=== PATIENT | female | born 1950 | race Caucasian/White ===

== ENCOUNTER → 2023-03-23 08:56 | Outpatient (REF) | payer MEDICARE, OTHER, SELFPAY | LOC: HWRAD 08:56 | PROVIDERS: ATTENDING PHYSICIAN Internal Medicine Hematology & Oncology; FAMILY PHYSICIAN Family Medicine | DX: C34.31 Malignant neoplasm of lower lobe, right bronchus or lung (principal); C34.11 Malignant neoplasm of upper lobe, right bronchus or lung; Z79.899 Other long term (current) drug therapy | CPT/HCPCS: 71260; 74177; Q9967 ==

== ENCOUNTER 2023-06-11 09:20 | Outpatient (RCR) | payer MEDICARE, OTHER, SELFPAY | END 2023-06-11 23:59 | disposition home or self-care (01) | LOC: PURB 09:20 | PROVIDERS: ATTENDING PHYSICIAN Internal Medicine Critical Care Medicine; FAMILY PHYSICIAN Family Medicine | DX: J44.9 Chronic obstructive pulmonary disease, unspecified (principal); Z85.118 Personal history of other malignant neoplasm of bronchus and lung | CPT/HCPCS: 94625; G0237 ==

== ENCOUNTER 2023-07-14 09:30 | Outpatient (RCR) | payer MEDICARE, OTHER, SELFPAY | END 2023-07-14 23:59 | disposition home or self-care (01) | LOC: PURB 09:30 | PROVIDERS: ATTENDING PHYSICIAN Internal Medicine Critical Care Medicine; FAMILY PHYSICIAN Family Medicine | DX: J44.9 Chronic obstructive pulmonary disease, unspecified (principal); C34.11 Malignant neoplasm of upper lobe, right bronchus or lung | CPT/HCPCS: 94625 ==

== ENCOUNTER 2023-07-15 08:28 | Outpatient (REF) | payer MEDICARE, OTHER, SELFPAY ==
[2023-07-15] VITALS (11 sets, daily range): BP systolic 83–142; BP diastolic 63–81
[2023-07-15 08:55] LABS: % Basophils 1.3 % (0-2); % Eosinophils 3.6 % (0-6); % Immature Granulocytes 0.2 % (0-0.5); % Lymphocytes 17.2 % (20.5-51.1); % Monocytes 9.3 % (1.7-9.3); % Neutrophils 68.4 % (42.2-75.2); Absolute Basophils 0.1 10^3/uL (0-0.2); Absolute Eosinophils 0.2 10^3/uL (0-0.7); Absolute Lymphocytes 0.8 10^3/uL (1.2-3.4); Absolute Monocytes 0.4 10^3/uL (0.1-0.6); Absolute Neutrophils 3.2 10^3/uL (1.4-6.5); Hematocrit 40.4 % (37.0-47.0); Hemoglobin 13.5 g/dL (12.0-16.0); Mean Corp Hgb Conc. 33.4 g/dL (33.0-37.0); Mean Corpuscular Volume 86.7 fL (81.0-99.0); Mean Platelet Volume 10.1 fL (7.4-10.4); Nucleated Red Blood Cells % 0 %; Platelet Count 176 10^3/uL (130-400); Red Blood Cell Count 4.66 10^6/uL (4.20-5.40); Red Cell Dist. Width 14.6 % (11.5-14.5); White Blood Cell Count 4.7 10^3/uL (4.8-10.8)
[2023-07-15 09:04] LABS: INR 1.06; PT 13.9 Sec (11.4-14.6)
== END 2023-07-15 15:20 | disposition home or self-care (01) ==
LOC: RADI 08:28
PROVIDERS: ATTENDING PHYSICIAN Internal Medicine Hematology & Oncology; FAMILY PHYSICIAN Family Medicine
DX: R91.1 Solitary pulmonary nodule (principal); C34.31 Malignant neoplasm of lower lobe, right bronchus or lung; C34.11 Malignant neoplasm of upper lobe, right bronchus or lung; Z79.899 Other long term (current) drug therapy; Z79.01 Long term (current) use of anticoagulants
CPT/HCPCS: 88305; 88312; 32408; 36415; 71045; 85025; 85610; 88333; 88334; 99152; C2613

== ENCOUNTER 2023-08-13 09:30 | Outpatient (RCR) | payer MEDICARE, OTHER, SELFPAY | END 2023-08-13 23:59 | disposition home or self-care (01) | LOC: PURB 09:30 | PROVIDERS: ATTENDING PHYSICIAN Internal Medicine Critical Care Medicine; FAMILY PHYSICIAN Family Medicine | DX: J44.9 Chronic obstructive pulmonary disease, unspecified (principal) | CPT/HCPCS: 94625 ==

== ENCOUNTER 2023-09-01 09:30 | Outpatient (RCR) | payer MEDICARE, OTHER, SELFPAY | END 2023-09-02 09:37 | disposition home or self-care (01) | LOC: PURB 09:30 | PROVIDERS: ATTENDING PHYSICIAN Internal Medicine Critical Care Medicine; FAMILY PHYSICIAN Family Medicine | DX: J44.9 Chronic obstructive pulmonary disease, unspecified (principal) | CPT/HCPCS: 94625 ==

== ENCOUNTER → 2023-09-28 08:44 | Outpatient (REF) | payer MEDICARE, OTHER, SELFPAY | LOC: RAD 08:44 | PROVIDERS: ATTENDING PHYSICIAN Internal Medicine Hematology & Oncology; FAMILY PHYSICIAN Family Medicine | DX: C34.31 Malignant neoplasm of lower lobe, right bronchus or lung (principal); C34.11 Malignant neoplasm of upper lobe, right bronchus or lung; Z79.899 Other long term (current) drug therapy; C34.12 Malignant neoplasm of upper lobe, left bronchus or lung | CPT/HCPCS: 71260; Q9967 ==

== ENCOUNTER 2023-10-31 12:22 | Emergency (ER) | payer MEDICARE, OTHER, SELFPAY ==
[2023-10-31 12:24] VITALS: BP 138/83
[2023-10-31 12:49] VITALS: BMI 20.6
--- NOTE | 2023-10-31 12:50 | ED.GENMED ---
History of Present Illness
General
Chief Complaint: Fall
Source: patient
Time Seen by Provider: 10/31/23 12:38
History of Present Illness
History of Present Illness:
73yoF with a history of COPD, prior history of lung and thyroid cancer currently in remission, hypertension, hyperlipidemia, and osteoporosis presenting with her sister for evaluation of right hip pain. Patient is currently dog sitting her friend's
dog. The dog ran out from under her bed yesterday causing her to fall. She fell on her right onto the carpeted floor. This occurred around 1 PM yesterday afternoon. She denies any head strike or loss of consciousness. Her only current complaint
is right hip pain. Patient is able to bear weight although it is painful. She has been using a cane since the fall. She is otherwise asymptomatic and denies any neck pain, back pain, paresthesias. No prior history of right hip injuries.
Phy Exam
General Physical Exam
General Presentation: well appearing and no apparent distress
General age: appears stated age
General Skin: warm and dry
General Habitus: normal
General Mental: alert
ENT Exam
ENT Exam: normocephalic
Additional ENT: No external signs of head trauma. No cervical spine tenderness.
Pulmonary Exam
Pulmonary Exam: lungs clear and no respiratory distress
[place] Coma Scale
Eye Opening: Spontaneous
Verbal Response: Oriented
Motor Response: Obeys Commands
GCS Total Score: 15
Musculoskeletal Exam
Musculoskeletal Exam: other (R hip: No deformity or ecchymosis noted. Mild tenderness to the R buttock. ROM is normal. No pain with hip flexion or internal/external rotation. )
Skin Exam
Skin Exam: normal color and warm/dry
Psychiatric Exam
Psychiatric Exam: normal mood/affect
Course
Orders/Labs/Results
Orders:
Orders
10/31/23 12:28
Hip, Right 2-3 Views [CR Hip - RT w/wo Pel 2-3 Vw*] Urgent
Comment:
Reason For Exam: fall
Include a pelvis x-ray?: Yes
10/31/23 12:49
Oxycodone/Acetaminophen [Percocet 5/325] 1 tablet PO NOW STA
Vital Signs
Initial and Last Documented VS:
Initial Vital Signs
Temp Pulse Resp BP Pulse Ox
98 F 78 16 138/83 98
10/31/23 12:24 10/31/23 12:24 10/31/23 12:24 10/31/23 12:24 10/31/23 12:24
Last Documented Vital Signs
Temp Pulse Resp BP Pulse Ox
98 F 78 16 138/83 98
10/31/23 12:24 10/31/23 12:24 10/31/23 12:24 10/31/23 12:24 10/31/23 12:24
MDM/Problems Addressed
Differential Diagnosis Includes:
73yoF here with R hip pain after a fall 24 hours ago. Able to bear weight. Otherwise asymptomatic. She is afebrile and hemodynamically stable. She is well appearing in no distress. No deformity on exam and ROM is normal. RLE is neurovascularly
intact. Differential diagnosis includes but is not limited to: fracture, strain, contusion, bursitis
X-rays of R hip obtained which are negative for fracture per my interpretation. Patient able to bear weight and ROM is normal. Doubt occult fracture. Patient stable for discharge. Supportive care discussed. Advised f/u with orthopedics if symptoms
persist and ED return precautions discussed. She was discharged in stable condition.
*Critical Care Note
Total Time (30-74mins, 75-104mins- exclusive of procedures): Not Applicable
ED Attending Note
-
Portions of this chart may have been created with voice recognition software.� Occasional wrong word or��sound alike� substitutions may have occurred due to the inherent limitations of voice recognition software.
Discharge Plan
Departure
Patient Disposition: Home (Routine Discharge)
Date of Disposition: 10/31/23
Time of Disposition: 13:23
Patient with high blood pressure during this ER visit?: No
Discharge Problem:
Acute right hip pain
Instructions: Hip Pain ED
Prescriptions:
No Action
Centrum Silver Ultra Women's 1 EACH tablet
1 ea PO DAILY
escitalopram oxalate [Lexapro] 5 MG tablet
10 mg PO DAILY
cholecalciferol (vitamin D3) [Vitamin D3] 25 MCG capsule
25 mcg PO DAILY
rosuvastatin 5 MG tablet
5 mg PO QPM
Stiolto Respimat Inhal [place] inhaler
2 puff inhalation DAILY
Ventolin Hfa inhaler
2 puff inhalation PRN PRN (Reason: dyspnea)
raloxifene 60 mg Tablet
60 mg PO DAILY
levothyroxine 112 mcg Tablet
112 mcg PO DAILY
aspirin 81 mg Capsule
81 mg PO DAILY
amlodipine 10 mg Tablet
10 mg PO DAILY
acetaminophen 325 mg Tablet
650 mg PO Q4HPRN PRN (Reason: mild pain/BASILIO/temp> 100.4F) Qty: 0 0RF
Referrals:
Noe Lugo MD [Active] -
Salima Rosenberg, [Family Provider] -
Activity Restrictions/Additional Instructions:
Rest and apply ice to affected area. Take Tylenol as needed for pain.
Please follow-up with orthopedics if symptoms persist. Return to the ER with any worsening symptoms or inability to walk.
Interventions
Interventions:
*Risk Screen - Suicide Last Done: 10/31/23 12:23
*General Assessment Last Done: 10/31/23 12:24
*Neglect/Abuse Screening Last Done: 10/31/23 12:24
ED- Fall Risk Assessment Last Done: 10/31/23 12:44
*ED COVID-19 Vaccine History Last Done: 10/31/23 12:44
*Nursing Disposition Last Done: 10/31/23 13:33
ED-Musculoskeletal Assessment Last Done: 10/31/23 12:49
ED- Neurological Assessment Last Done: 10/31/23 12:49
ED-Skin Assessment Last Done: 10/31/23 12:49
Discharge Date and Time
Discharge Date/Time: 10/31/23 13:34
Print Language: MONTSERRATIAN
[2023-10-31] MEDS: PERCOCET 5/325 1 TABLET PO (12:53)
== END 2023-10-31 13:34 | disposition home or self-care (01) ==
LOC: EMR 12:22
PROVIDERS: EMERGENCY PHYSICIAN Emergency Medicine; FAMILY PHYSICIAN Family Medicine
DX: M25.551 Pain in right hip (principal); W19.XXXA Unspecified fall, initial encounter; J44.9 Chronic obstructive pulmonary disease, unspecified; I10 Essential (primary) hypertension; E78.5 Hyperlipidemia, unspecified
CPT/HCPCS: 99283; 73502

== ENCOUNTER 2023-11-07 23:29 | Emergency (ER) | payer MEDICARE, OTHER, SELFPAY ==
[2023-11-07 23:29] VITALS: BMI 20.7
[2023-11-07 23:31] VITALS: BP 110/80
[2023-11-08 00:22] VITALS: BP 140/71
[2023-11-08] MEDS: PERCOCET 5/325 1 TABLET PO (00:40)
[2023-11-08 01:00] VITALS: BP 134/66
--- NOTE | 2023-11-08 01:05 | ED.MUSCINJ ---
HPI-Injury
General
Chief Complaint: Musculo-Skeletal Complaint
Time Seen by Provider: 11/08/23 00:22
History of Present Illness-Injury
Initial Injury comments:
73-year-old female with history of hypertension and hyperlipidemia presenting to the emergency department for pain in her coccyx region. Patient reports she had a fall 1 week ago, was seen in the emergency department on 10/30. At that time she had
an x-ray that was normal. She was advised supportive therapy with Tylenol and Motrin, however has not had any improvement in her pain. Has been also using pain patches. Pain has been persistent. She has been able to ambulate. Denies numbness or
tingling to her legs or any weakness. Denies issues with urination or defecation. Denies any fever. Denies abdominal pain. Denies chest pain or difficulty breathing. Denies additional injuries from the fall. Denies additional acute medical
complaints
Phy Exam
Physical Exam
Physical Exam:
General: Well-appearing, no clinical signs of dehydration, nontoxic and in no acute distress
HEENT: protecting airway
Neck: appears supple
CV: Normal heart rate
Resp: No accessory muscle use, no increased work of breathing
Abd: No distention
Extremities: No deformities, no swelling, no erythema, pulses and sensation intact. Tenderness to the coccyx region. No significant lumbar tenderness. Pelvis is stable
Neuro: alert, no focal neurologic deficit
: deferred
Rectal: deferred
Psych: Normal affect
Skin: Intact
Injury Course
Orders/Labs/Results
Orders:
Orders
11/08/23 00:30
CT Pelvis W/o Iv Contrast Urgent
Comment:
Reason For Exam: coccyx/pelvic pain after fall
11/08/23 00:31
Oxycodone/Acetaminophen [Percocet 5/325] 1 tablet PO NOW STA
11/08/23 00:37
Oxycodone/Acetaminophen [Percocet 5/325] 1 tablet .ROUTE .STK-MED ONE
MDM/Problems Addressed
MDM/Problems Addressed:
73-year-old female presenting for 1 week of coccyx pain after a fall. Vital signs on arrival are normal.
On exam, patient well-appearing, no acute distress or discomfort. Patient with generalized tenderness to the coccyx region, suspected coccyx/sacral fracture or contusion. No neurovascular compromise to the extremities. No focal neurologic
deficits with lower suspicion for spinal compromise. Will administer Percocet for pain control and obtain CT pelvis given persistent pain.
02:00 - CT shows bilateral sacral arik fractures, as well as a fracture of the anterior cortex of S2. Additional acute fractures of the right superior and inferior pubic rami. Nonsurgical fractures. Patient has already been ambulating. At this
time do not feel patient requires admission, will need pain control. Patient reports improvement of pain with Percocet. Will prescribe, however cautioned against somnolence. Will put in case management consult for potential home physical therapy.
Advised to follow-up with orthopedics. Strict return precautions communicated to patient who verbalized understanding
*Critical Care Note
Total Time (30-74mins, 75-104mins- exclusive of procedures): Not Applicable
ED Attending Note
-
Portions of this chart may have been created with voice recognition software.� Occasional wrong word or��sound alike� substitutions may have occurred due to the inherent limitations of voice recognition software.
Discharge Plan
Departure
Prescriptions:
No Action
Centrum Silver Ultra Women's 1 EACH tablet
1 ea PO DAILY
escitalopram oxalate [Lexapro] 5 MG tablet
10 mg PO DAILY
cholecalciferol (vitamin D3) [Vitamin D3] 25 MCG capsule
25 mcg PO DAILY
rosuvastatin 5 MG tablet
5 mg PO QPM
Stiolto Respimat Inhal [place] inhaler
2 puff inhalation DAILY
Ventolin Hfa inhaler
2 puff inhalation PRN PRN (Reason: dyspnea)
raloxifene 60 mg Tablet
60 mg PO DAILY
levothyroxine 112 mcg Tablet
112 mcg PO DAILY
aspirin 81 mg Capsule
81 mg PO DAILY
amlodipine 10 mg Tablet
10 mg PO DAILY
acetaminophen 325 mg Tablet
650 mg PO Q4HPRN PRN (Reason: mild pain/BASILIO/temp> 100.4F) Qty: 0 0RF
Referrals:
Salima Rosenberg, [Family Provider] -
Interventions
Interventions:
*Risk Screen - Suicide Last Done: 11/07/23 23:31
*General Assessment Last Done: 11/08/23 00:19
*Neglect/Abuse Screening Last Done: 11/07/23 23:31
*ED COVID-19 Vaccine History Last Done: 11/08/23 00:19
ED-Musculoskeletal Assessment Last Done: 11/08/23 00:23
Discharge Date and Time
Print Language: ALGERIAN
[2023-11-08] MEDS: TORADOL 30 MG IM (02:28)
[2023-11-08 02:29] VITALS: BP 143/62
--- NOTE | 2023-11-08 09:28 | CM ---
Addendum entered by Julisa Vance RN 11/08/23 13:12:
CM has not heard back from patient. Referral sent to [facility].
Original Note:
Cm left message for patient to discuss home care options.
--- NOTE | 2023-11-09 11:17 | CM ---
Ruth left a VM at 3:28pm yesterday. CM introduced self and role. CM confirmed that home health care was set up for patient and she should receive a call today or tomorrow. Ruth verbalized understanding and in agreement.
== END 2023-11-08 02:48 | disposition home or self-care (01) ==
LOC: EMR 23:29
PROVIDERS: EMERGENCY PHYSICIAN Student in an Organized Health Care Education/Training Program; FAMILY PHYSICIAN Family Medicine
DX: M53.3 Sacrococcygeal disorders, not elsewhere classified (principal); W19.XXXA Unspecified fall, initial encounter; E78.00 Pure hypercholesterolemia, unspecified; I10 Essential (primary) hypertension; Z90.49 Acquired absence of other specified parts of digestive tract
CPT/HCPCS: 99284; 96372; 72192

== ENCOUNTER → 2023-12-23 08:30 | Outpatient (REF) | payer MEDICARE, OTHER, SELFPAY | LOC: RAD 08:30 | PROVIDERS: ATTENDING PHYSICIAN Internal Medicine Hematology & Oncology; FAMILY PHYSICIAN Family Medicine | DX: C34.31 Malignant neoplasm of lower lobe, right bronchus or lung (principal); C34.11 Malignant neoplasm of upper lobe, right bronchus or lung; Z79.899 Other long term (current) drug therapy; C34.12 Malignant neoplasm of upper lobe, left bronchus or lung | CPT/HCPCS: 71260; Q9967 ==

== ENCOUNTER → 2023-12-28 12:50 | Outpatient (REF) | payer MEDICARE, OTHER, SELFPAY | LOC: HWRAD 12:50 | PROVIDERS: ATTENDING PHYSICIAN Internal Medicine Endocrinology, Diabetes & Metabolism; FAMILY PHYSICIAN Family Medicine | DX: Z12.31 Encounter for screening mammogram for malignant neoplasm of breast (principal); M81.0 Age-related osteoporosis without current pathological fracture | CPT/HCPCS: 77063; 77067; 77080 ==

== ENCOUNTER → 2023-12-30 16:12 | Outpatient (REF) | payer MEDICARE, OTHER, SELFPAY ==
[2023-12-30 14:08] LABS: % Basophils 0.7 % (0-2); % Eosinophils 1.5 % (0-6); % Immature Granulocytes 0.2 % (0-0.5); % Lymphocytes 16.2 % (20.5-51.1); % Neutrophils 73.4 % (42.2-75.2); Absolute Eosinophils 0.1 10^3/uL (0-0.7); Absolute Monocytes 0.5 10^3/uL (0.1-0.6); Absolute Neutrophils 4.4 10^3/uL (1.4-6.5); Hematocrit 39.6 % (37.0-47.0); Hemoglobin 13.4 g/dL (12.0-16.0); Mean Corp Hgb Conc. 33.8 g/dL (33.0-37.0); Mean Corpuscular Hgb 31.2 pg (27.0-31.0); Mean Corpuscular Volume 92.1 fL (81.0-99.0); Mean Platelet Volume 10.6 fL (7.4-10.4); Platelet Count 231 10^3/uL (130-400); Red Cell Dist. Width 14.3 % (11.5-14.5)
[2023-12-30 15:43] LABS: ALT (SGPT) 23 U/L (0-35); AST (SGOT) 37 U/L (14-36); Albumin 4.5 g/dl (3.5-5.0); Alkaline Phosphatase 126 U/L (38-126); Blood Urea Nitrogen 24 mg/dl (7-17); Calcium 9.4 mg/dl (8.4-10.2); Carbon Dioxide 25 mmol/L (22-30); Chloride 103 mmol/L (98-107); GGTP 16 U/L (12-43); Glucose 139 mg/dl (70-99); Potassium 4.1 mmol/L (3.5-5.1); Sodium 140 mmol/L (135-145); Total Bilirubin 0.3 mg/dl (0.2-1.3); Total Protein 6.7 g/dl (6.3-8.2); eGFR > 60.00
== END ==
LOC: OIDL 16:12
PROVIDERS: ATTENDING PHYSICIAN Internal Medicine Hematology & Oncology
DX: C34.31 Malignant neoplasm of lower lobe, right bronchus or lung (principal)
CPT/HCPCS: 80053; 82977; 85025

== ENCOUNTER → 2024-01-06 08:59 | Outpatient (REF) | payer MEDICARE, OTHER, SELFPAY | LOC: WDC 08:59 | PROVIDERS: ATTENDING PHYSICIAN Family Medicine | DX: R92.8 Other abnormal and inconclusive findings on diagnostic imaging of breast (principal) | CPT/HCPCS: 77063; 77065; 77067 ==

== ENCOUNTER → 2024-03-16 09:17 | Outpatient (REF) | payer MEDICARE, OTHER, SELFPAY | LOC: RAD 09:17 | PROVIDERS: ATTENDING PHYSICIAN Internal Medicine Hematology & Oncology; FAMILY PHYSICIAN Family Medicine | DX: C34.31 Malignant neoplasm of lower lobe, right bronchus or lung (principal); C34.11 Malignant neoplasm of upper lobe, right bronchus or lung; Z79.899 Other long term (current) drug therapy; C34.12 Malignant neoplasm of upper lobe, left bronchus or lung | CPT/HCPCS: 71260; Q9967 ==

== ENCOUNTER → 2024-03-23 12:17 | Outpatient (REF) | payer MEDICARE, OTHER, SELFPAY ==
[2024-03-23 11:55] LABS: % Eosinophils 2.2 % (0-6); % Lymphocytes 18.4 % (20.5-51.1); % Monocytes 8.6 % (1.7-9.3); % Neutrophils 69.8 % (42.2-75.2); Absolute Basophils 0.1 10^3/uL (0-0.2); Absolute Eosinophils 0.1 10^3/uL (0-0.7); Absolute Lymphocytes 0.9 10^3/uL (1.2-3.4); Absolute Monocytes 0.4 10^3/uL (0.1-0.6); Absolute Neutrophils 3.5 10^3/uL (1.4-6.5); Hematocrit 43.1 % (37.0-47.0); Hemoglobin 14.2 g/dL (12.0-16.0); Mean Corp Hgb Conc. 32.9 g/dL (33.0-37.0); Mean Corpuscular Hgb 30.3 pg (27.0-31.0); Mean Corpuscular Volume 91.9 fL (81.0-99.0); Platelet Count 206 10^3/uL (130-400); Red Blood Cell Count 4.69 10^6/uL (4.20-5.40); Red Cell Dist. Width 11.9 % (11.5-14.5)
[2024-03-23 13:04] LABS: ALT (SGPT) 26 U/L (0-35); AST (SGOT) 33 U/L (14-36); Albumin 4.4 g/dl (3.5-5.0); Alkaline Phosphatase 58 U/L (38-126); Blood Urea Nitrogen 17 mg/dl (7-17); Calcium 9.2 mg/dl (8.4-10.2); Carbon Dioxide 24 mmol/L (22-30); Chloride 102 mmol/L (98-107); Glucose 99 mg/dl (70-99); Potassium 4.3 mmol/L (3.5-5.1); Sodium 132 mmol/L (135-145); Total Bilirubin 0.5 mg/dl (0.2-1.3); Total Protein 6.4 g/dl (6.3-8.2); eGFR > 60.00
== END ==
LOC: OIDL 12:17
PROVIDERS: ATTENDING PHYSICIAN Internal Medicine Hematology & Oncology
DX: C34.31 Malignant neoplasm of lower lobe, right bronchus or lung (principal)
CPT/HCPCS: 80053; 85025

== ENCOUNTER → 2024-06-13 13:54 | Outpatient (REF) | payer MEDICARE, OTHER, SELFPAY ==
[2024-06-13 14:04] LABS: % Basophils 0.5 % (0-2); % Eosinophils 1.4 % (0-6); % Lymphocytes 16.1 % (20.5-51.1); % Monocytes 8.7 % (1.7-9.3); % Neutrophils 73.3 % (42.2-75.2); Absolute Eosinophils 0.1 10^3/uL (0-0.7); Absolute Lymphocytes 1.1 10^3/uL (1.2-3.4); Absolute Monocytes 0.6 10^3/uL (0.1-0.6); Absolute Neutrophils 4.9 10^3/uL (1.4-6.5); Hematocrit 40.3 % (37.0-47.0); Hemoglobin 13.7 g/dL (12.0-16.0); Mean Corpuscular Hgb 30.4 pg (27.0-31.0); Mean Corpuscular Volume 89.4 fL (81.0-99.0); Mean Platelet Volume 10.2 fL (7.4-10.4); Platelet Count 207 10^3/uL (130-400); Red Blood Cell Count 4.51 10^6/uL (4.20-5.40); White Blood Cell Count 6.7 10^3/uL (4.8-10.8)
[2024-06-13 14:55] LABS: ALT (SGPT) 23 U/L (0-35); AST (SGOT) 29 U/L (14-36); Albumin 4.2 g/dl (3.5-5.0); Alkaline Phosphatase 48 U/L (38-126); Blood Urea Nitrogen 18 mg/dl (7-17); Calcium 9.7 mg/dl (8.4-10.2); Carbon Dioxide 26 mmol/L (22-30); Chloride 103 mmol/L (98-107); Glucose 92 mg/dl (70-99); Potassium 4.2 mmol/L (3.5-5.1); Sodium 139 mmol/L (135-145); Total Bilirubin 0.6 mg/dl (0.2-1.3); Total Protein 6.4 g/dl (6.3-8.2); eGFR > 60.00
== END ==
LOC: OIDL 13:54
PROVIDERS: ATTENDING PHYSICIAN Internal Medicine Hematology & Oncology
DX: C34.31 Malignant neoplasm of lower lobe, right bronchus or lung (principal); C34.11 Malignant neoplasm of upper lobe, right bronchus or lung; Z79.899 Other long term (current) drug therapy; C34.12 Malignant neoplasm of upper lobe, left bronchus or lung
CPT/HCPCS: 80053; 85025

== ENCOUNTER → 2024-06-27 11:07 | Outpatient (REF) | payer MEDICARE, OTHER, SELFPAY | LOC: HWWDC 11:07 | PROVIDERS: ATTENDING PHYSICIAN Family Medicine | DX: Z12.31 Encounter for screening mammogram for malignant neoplasm of breast (principal) | CPT/HCPCS: 77061; 77065 ==

== ENCOUNTER → 2024-08-31 08:34 | Outpatient (REF) | payer MEDICARE, OTHER, SELFPAY | LOC: RAD 08:34 | PROVIDERS: ATTENDING PHYSICIAN Internal Medicine Hematology & Oncology; FAMILY PHYSICIAN Family Medicine | DX: C34.31 Malignant neoplasm of lower lobe, right bronchus or lung (principal); C34.11 Malignant neoplasm of upper lobe, right bronchus or lung; C34.12 Malignant neoplasm of upper lobe, left bronchus or lung; Z79.899 Other long term (current) drug therapy | CPT/HCPCS: 71260; Q9967 ==

== ENCOUNTER → 2025-01-10 09:08 | Outpatient (REF) | payer MEDICARE, OTHER, SELFPAY | LOC: HWWDC 09:08 | PROVIDERS: ATTENDING PHYSICIAN Family Medicine | DX: Z12.31 Encounter for screening mammogram for malignant neoplasm of breast (principal) | CPT/HCPCS: 77063; 77067 ==